=== PATIENT | male | born 1980 | race Two or more races ===

== ENCOUNTER 2024-07-12 11:31 | Inpatient (IN) | payer OTHER ==
[~2024-07-12] VITALS: Ht 177.8 cm; Wt 90.7 kg
[2024-07-12 12:28] LABS: HEMATOCRIT 42.3 % (39.0-48.0); HEMOGLOBIN 13.9 g/dL (13-16.00); MEAN CELL VOLUME 85.7 fL (80.0-100.00); MEAN CORPUSCULAR HEMOGLOBIN 28.1 pg (27.00-32.0); MEAN CORPUSCULAR HGB CONC 32.8 g/dl (32.0-36.0); PLATELET COUNT 294 K/uL (150-450); RED BLOOD COUNT 4.93 M/uL (4.00-6.00); RED CELL DISTRIBUTION WIDTH 15.4 % (11.5-14.5)
[2024-07-12 12:32] LABS: PH,URINE 6.5 (5.0-8.0); URINE APPEARANCE Clear; URINE BILIRRUBIN Negative (NEGATIVE); URINE BLOOD Negative; URINE COLOR Yellow; URINE GLUCOSE Negative (NEGATIVE); URINE KETONE Negative (NEGATIVE); URINE LEUKOCYTE Negative; URINE NITRATE Negative; URINE PROTEIN Negative (NEGATIVE); URINE UROBILINOGEN 0.2 E.U./dl
[2024-07-12 12:36] LABS: URINE RBC 7.9 uL (0.0-20.8)
[2024-07-12 12:39] LABS: URINE BACTERIA 2.5 uL (0.0-1933); URINE EPITHELIAL CELLS 0.4 uL (0.0-38.8); URINE WBC 1.5 uL (0.0-23.2)
[2024-07-12] MEDS ORDERED: COZAAR100 MG PO (12:52)
[2024-07-12 12:53] LABS: INR < 0.93; PARTIAL THROMBOPLASTIN TIME 31.6 SECONDS (22.0-34.0); PROTHROMBIN TIME 10.2 SECONDS (9.0-11.5)
[2024-07-12] MEDS ORDERED: HYDROCHLOROTHIA25 MG PO (12:53)
[2024-07-12 12:54] VITALS: BP 130/77
[2024-07-12 12:59] LABS: BILIRUBIN TOTAL 0.29 mg/dL (0.3-1.2); CREATININE SERUM 0.97 mg/dL (0.70-1.30); GFR 84.08; GLOBULINA 3.9 G/DL (2.4-3.5); POTASSIUM 3.35 mEq/L (3.5-5.1); TOTAL PROTEIN 7.9 gm/dL (6.4-8.2)
[2024-07-20] MEDS ORDERED: CEFTRIAXONE SODIUM 2,000 MG VIAL IV SCH (09:00)
[2024-07-20] MEDS ORDERED: METRONIDAZOLE/SODIUM CHLORIDE 500 MG/100 ML PIGGYBACK IV SCH (09:00)
[2024-07-20] MEDS ORDERED: BUPIVACAINE HCL 30 ML VIAL IJ ONE (09:00)
[2024-07-20] MEDS ORDERED: LIDOCAINE HCL 1%/EPINEPHRINE 20ML VIAL IJ ONE (09:00)
[2024-07-20] MEDS ORDERED: ONDANSETRON HCL 2 MG/ML VIAL IV PRN (11:30)
[2024-07-20] MEDS ORDERED: MORPHINE SULFATE 4 MG/ML CARTRIDGE IV PRN (11:30)
[2024-07-20] MEDS ORDERED: RINGERS SOLUTION,LACTATED 1,000 ML IV SCH (11:30)
[2024-07-20] MEDS ORDERED: DEXTROSE 50 % IN WATER 0.5 G/ML DISP.SYRIN IV PRN (11:30)
[2024-07-20] MEDS ORDERED: OxyCODONE HCL 5 MG TABLET (ROXICODONE) PO PRN (11:30)
[2024-07-20 13:00] LABS: HEMATOCRIT 39.1 % (39.0-48.0); HEMOGLOBIN 13.3 g/dL (13-16.00); MEAN CELL VOLUME 84.4 fL (80.0-100.00); MEAN CORPUSCULAR HEMOGLOBIN 28.6 pg (27.00-32.0); MEAN CORPUSCULAR HGB CONC 33.9 g/dl (32.0-36.0); PLATELET COUNT 331 K/uL (150-450); RED BLOOD COUNT 4.64 M/uL (4.00-6.00); RED CELL DISTRIBUTION WIDTH 15.5 % (11.5-14.5)
[2024-07-20] MEDS ORDERED: HYOSCYAMINE SULFATE 0.125 MG TAB.SUBL SL SCH (13:00)
[2024-07-20] MEDS ORDERED: ACETAMINOPHEN 500 MG GEL..CAP PO SCH (14:00)
[2024-07-20 14:28] VITALS: BP 118/79; O2SAT 95
[2024-07-20] MEDS ORDERED: ENALAPRILAT DIHYDRATE 1.25 MG/ML VIAL IV PRN (14:45)
[2024-07-20] MEDS ORDERED: GABAPENTIN 300 MG CAPSULE PO SCH (17:00)
[2024-07-20] MEDS ORDERED: SIMETHICONE 125 MG CAPSULE PO SCH (17:00)
[2024-07-20] MEDS ORDERED: POLYETHYLENE GLYCOL 3350 17 GM BLIST.PACK PO SCH (17:00)
[2024-07-20] MEDS ORDERED: CELECOXIB 200 MG CAPSULE PO SCH (17:00)
[2024-07-20] MEDS ORDERED: METOCLOPRAMIDE HCL 5 MG/ML VIAL IV SCH (17:00)
[2024-07-20 18:24] VITALS: BP 119/79; O2SAT 96
[2024-07-20] MEDS ORDERED: FAMOTIDINE/PF 20 MG/2 ML VIAL IV PUSH SCH (21:00)
[2024-07-21] VITALS: BP 123/57; O2SAT 98
[2024-07-21 07:55] LABS: HEMATOCRIT 40.3 % (39.0-48.0); HEMOGLOBIN 13.2 g/dL (13-16.00); MEAN CELL VOLUME 86.5 fL (80.0-100.00); MEAN CORPUSCULAR HEMOGLOBIN 28.4 pg (27.00-32.0); MEAN CORPUSCULAR HGB CONC 32.8 g/dl (32.0-36.0); PLATELET COUNT 252 K/uL (150-450); RED BLOOD COUNT 4.66 M/uL (4.00-6.00); RED CELL DISTRIBUTION WIDTH 15.3 % (11.5-14.5)
[2024-07-21 08:41] LABS: ALBUMIN 3.3 gm/dL (3.4-5.0); CALCIUM 8.9 mg/dL (8.5-10.1); CREATININE SERUM 1.19 mg/dL (0.70-1.30); GFR 66.41; MAGNESIUM 1.7 mg/dL (1.8-2.4); PHOSPHOROUS 3.3 mg/dL (2.5-4.9); POTASSIUM 3.33 mEq/L (3.5-5.1)
[2024-07-21] MEDS ORDERED: LACTOBACILLUS ACIDOPHILUS 1 CAP CAP PO SCH (09:00)
[2024-07-21] MEDS ORDERED: LOSARTAN/HYDROCHLOROTHIAZIDE 1 UDTAB TABLET PO SCH (09:00)
[2024-07-21] MEDS ORDERED: LACTULOSE 20 G/30 ML BLIST.PACK PO SCH (09:00)
[2024-07-21 09:58] VITALS: BP 124/82; O2SAT 97
[2024-07-21 16:00] VITALS: BP 99/66; O2SAT 95
[2024-07-21] MEDS ORDERED: ENOXAPARIN SODIUM 40 MG/0.4 ML SYRINGE SUBCUTANEO SCH (17:00)
[2024-07-22 00:18] VITALS: BP 125/74; O2SAT 95
[2024-07-22 08:00] VITALS: BP 123/77; O2SAT 98
[2024-07-22] MEDS ORDERED: ENOXAPARIN SODIUM 40 MG/0.4 ML SYRINGE SUBCUTANEO SCH (09:00)
[2024-07-22] MEDS ORDERED: INTESTINEX680 M1 PO (11:16)
[2024-07-22] MEDS ORDERED: LEVSIN/SL0.125 MG SL (11:16)
[2024-07-22] MEDS ORDERED: NEURONTIN300 MG PO (11:16)
== END 2024-07-22 12:26 | disposition home or self-care (01) | DRG 330 ==
LOC: SURH 07-20 05:22 → O/R 07-20 05:22 → SURG 07-20 12:15 → SURH 07-20 12:40 → SURG 07-20 17:30 → SURH 07-22 12:26
PROVIDERS: ADMIT Colon & Rectal Surgery; ATTEND Colon & Rectal Surgery
PROC: 0DBP4ZZ Excision of Rectum, Percutaneous Endoscopic Approach (ICD-10-PCS; 2024-07-20)
PROC: 0DJD8ZZ Inspection of Lower Intestinal Tract, Via Natural or Artificial Opening Endoscopic (ICD-10-PCS; 2024-07-20)
PROC: 0DTN4ZZ Resection of Sigmoid Colon, Percutaneous Endoscopic Approach (ICD-10-PCS; principal; 2024-07-20 17:30)
DX: K57.32 Diverticulitis of large intestine without perforation or abscess without bleeding (principal); K92.1 Melena

== ENCOUNTER 2024-07-30 12:57 | Inpatient (IN) | payer OTHER ==
[~2024-07-30] VITALS: Ht 177.8 cm; Wt 90.7 kg
[~2024-07-30 12:57] MED LIST: COZAAR100 MG PO; HYDROCHLOROTHIA25 MG PO; INTESTINEX680 M1 PO; LEVSIN/SL0.125 MG SL; NEURONTIN300 MG PO
[2024-07-30 14:20] LABS: HEMATOCRIT 33.4 % (39.0-48.0); HEMOGLOBIN 11.6 g/dL (13-16.00); MEAN CELL VOLUME 82.5 fL (80.0-100.00); MEAN CORPUSCULAR HEMOGLOBIN 28.5 pg (27.00-32.0); MEAN CORPUSCULAR HGB CONC 34.6 g/dl (32.0-36.0); RED BLOOD COUNT 4.05 M/uL (4.00-6.00); RED CELL DISTRIBUTION WIDTH 15.7 % (11.5-14.5)
[2024-07-30 14:21] LABS: PLATELET COUNT 541 K/uL (150-450)
[2024-07-30 14:58] LABS: INR 1.15; PROTHROMBIN TIME 12.4 SECONDS (9.0-11.5)
[2024-07-30] MEDS ORDERED: CEFTRIAXONE SODIUM 1,000 MG VIAL IV ONE (15:45)
[2024-07-30] MEDS ORDERED: PIPERACILLIN/TAZOBACTAM SODIUM 3.375 GM VIAL IV ONE ×2 (16:03→16:09)
[2024-07-30] MEDS ORDERED: 0.9 % SODIUM CHLORIDE 1,000 ML IV SCH ×2 (16:15→19:00)
[2024-07-30 17:06] LABS: ALBUMIN 2.6 gm/dL (3.4-5.0); BILIRUBIN TOTAL 1.06 mg/dL (0.3-1.2); CALCIUM 8.8 mg/dL (8.5-10.1); CREATININE SERUM 1.24 mg/dL (0.70-1.30); GFR 63.33; GLOBULINA 5.9 G/DL (2.4-3.5); POTASSIUM 3.24 mEq/L (3.5-5.1); TOTAL PROTEIN 8.5 gm/dL (6.4-8.2)
[2024-07-30 17:07] LABS: URINE APPEARANCE Cloudy; URINE BILIRRUBIN Negative (NEGATIVE); URINE BLOOD Trace; URINE COLOR Dark Yellow; URINE GLUCOSE Negative (NEGATIVE); URINE KETONE 15 (NEGATIVE); URINE LEUKOCYTE Negative; URINE NITRATE Negative
[2024-07-30 17:11] LABS: URINE BACTERIA 39.1 uL (0.0-1933); URINE EPITHELIAL CELLS 53.8 uL (0.0-38.8); URINE RBC 30.6 uL (0.0-20.8)
[2024-07-30 17:19] LABS: URINE CAST 0.14 uL (0.0-1.40); URINE PROTEIN 100 (NEGATIVE)
[2024-07-30] MEDS ORDERED: PIPERACILLIN/TAZOBACTAM SODIUM 3.375 GM in 0.9 % SODIUM CHLORIDE 100 ML IV SCH (18:00)
[2024-07-30] MEDS ORDERED: IPRATROPIUM BROMIDE 0.5 MG/2.5 ML AMPUL.NEB IH SCH (18:52)
[2024-07-30] MEDS ORDERED: VANCOMYCIN HCL 1,000 MG VIAL IV SCH (18:55)
[2024-07-30] MEDS ORDERED: MEROPENEM 1,000 MG in 0.9 % SODIUM CHLORIDE 100 ML IV SCH (18:55)
[2024-07-30] MEDS ORDERED: FUROsemide 20 MG/2 ML VIAL IV SCH (18:55)
[2024-07-30] MEDS ORDERED: ACETAMINOPHEN 500 MG GEL..CAP PO PRN (19:00)
[2024-07-30] MEDS ORDERED: ENALAPRILAT DIHYDRATE 1.25 MG/ML VIAL IV PRN (19:00)
[2024-07-30] MEDS ORDERED: POTASSIUM CHLORIDE 20MEQ/100ML H2O PB IV ONE (19:30)
[2024-07-30] MEDS ORDERED: VANCOMYCIN HCL 1,000 MG VIAL ONE (19:38)
[2024-07-30] MEDS ORDERED: FUROsemide 20 MG/2 ML VIAL ONE (19:38)
[2024-07-30 20:41] VITALS: BP 139/75; O2SAT 97
[2024-07-30 20:43] LABS: INR 1.16; PARTIAL THROMBOPLASTIN TIME 31.3 SECONDS (22.0-34.0); PROTHROMBIN TIME 12.5 SECONDS (9.0-11.5)
[2024-07-30] MEDS ORDERED: MORPHINE SULFATE 4 MG/ML VIAL IV PRN (20:45)
[2024-07-30 21:41] VITALS: BP 139/75; O2SAT 99
[2024-07-30 23:54] LABS: ABG PH 7.481 (7.35-7.45); ABG PO2 73.2 mmHg (80-100); ABG pCO2 37.9 mmHg (35-45); BASE EXCESS 4.1 mmol/l; BICARBONATE 27.7 mmol/l (23-25); SaO2 95.9 %; Tco2 28.8 mmol/l
[2024-07-30 23:55] LABS: allen test SATISFACTORY; o2 50 %; puncture site RADIAL RIGHT
[2024-07-31] VITALS: BP 128/75; O2SAT 98
[2024-07-31 00:13] LABS: ABG PH 7.513 (7.35-7.45); ABG pCO2 30.3 mmHg (35-45)
[2024-07-31 00:14] LABS: ABG PO2 57.3 mmHg (80-100); BASE EXCESS 1.8 mmol/l; BICARBONATE 23.8 mmol/l (23-25); Tco2 24.7 mmol/l; allen test SATISFACTORY; o2 21 %; puncture site RADIAL RIGHT
[2024-07-31 00:16] LABS: SaO2 92.5 %
[2024-07-31 04:00] VITALS: BP 119/79; O2SAT 97
[2024-07-31 07:33] VITALS: BP 130/73; O2SAT 96
[2024-07-31] MEDS ORDERED: VANCOMYCIN HCL 1,000 MG VIAL ONE (08:04)
[2024-07-31] MEDS ORDERED: FAMOTIDINE/PF 20 MG in 0.9 % SODIUM CHLORIDE 8 ML IV PUSH SCH (09:00)
[2024-07-31] MEDS ORDERED: ENOXAPARIN SODIUM 40 MG/0.4 ML SYRINGE SUBCUTANEO SCH (09:00)
[2024-07-31] MEDS ORDERED: MORPHINE SULFATE 4 MG/ML CARTRIDGE IV PRN (10:30)
[2024-07-31 12:00] VITALS: BP 139/85; O2SAT 95
[2024-07-31 15:17] VITALS: BP 134/83; O2SAT 98
[2024-07-31 20:02] VITALS: BP 138/82; O2SAT 95
[2024-08-01] VITALS: BP 109/67; O2SAT 94
[2024-08-01 04:00] VITALS: BP 122/72; O2SAT 93
[2024-08-01 07:20] VITALS: BP 131/80; O2SAT 94
[2024-08-01] MEDS ORDERED: VANCOMYCIN HCL 1,000 MG VIAL ONE (08:00)
[2024-08-01] MEDS ORDERED: CHLORHEXIDINE GLUCONATE 120 ML BOTTLE TOP ONE (10:43)
[2024-08-01 12:00] VITALS: BP 145/81; O2SAT 96
[2024-08-01 15:30] VITALS: BP 149/78; O2SAT 96
[2024-08-01 20:00] VITALS: BP 139/82; O2SAT 95
[2024-08-02 00:17] VITALS: BP 141/75; O2SAT 96
[2024-08-02 04:00] VITALS: BP 128/75; O2SAT 92
[2024-08-02 06:55] LABS: HEMOGLOBIN 10.3 g/dL (13-16.00); MEAN CELL VOLUME 82.8 fL (80.0-100.00); MEAN CORPUSCULAR HEMOGLOBIN 28.3 pg (27.00-32.0); MEAN CORPUSCULAR HGB CONC 34.2 g/dl (32.0-36.0); PLATELET COUNT 609 K/uL (150-450); RED BLOOD COUNT 3.63 M/uL (4.00-6.00); RED CELL DISTRIBUTION WIDTH 15.3 % (11.5-14.5)
[2024-08-02 07:25] VITALS: BP 137/78; O2SAT 91
[2024-08-02 07:55] LABS: ALBUMIN 2.1 gm/dL (3.4-5.0); BILIRUBIN TOTAL 1.35 mg/dL (0.3-1.2); CALCIUM 7.9 mg/dL (8.5-10.1); CREATININE SERUM 1.04 mg/dL (0.70-1.30); GFR 77.58; GLOBULINA 4.3 G/DL (2.4-3.5); POTASSIUM 3.47 mEq/L (3.5-5.1); TOTAL PROTEIN 6.4 gm/dL (6.4-8.2)
[2024-08-02] MEDS ORDERED: VANCOMYCIN HCL 1,000 MG VIAL ONE (08:47)
[2024-08-02 12:00] VITALS: BP 130/81; O2SAT 91
[2024-08-02 15:00] VITALS: BP 123/76; O2SAT 94
[2024-08-02] MEDS ORDERED: SODIUM CL 0.9% 100 ML IV.SOLN IV ONE (15:57)
[2024-08-02] MEDS ORDERED: ACETAMINOPHEN 500 MG GEL..CAP PO PRN (17:00)
[2024-08-02] MEDS ORDERED: MEROPENEM 500 MG/VIAL VIAL IV SCH (18:00)
[2024-08-02 20:34] LABS: TP PLEURAL FLUID 5.1 g/dl
[2024-08-02] MEDS ORDERED: VANCOMYCIN HCL 5 MG/ML REDILUIDO IV SCH (21:00)
[2024-08-02 21:11] LABS: MONONUCLEAR 64 %; PLEURAL FLUID APPEARANCE CLOUDY; PLEURAL FLUID COLOR YELLOW; POLYMORPHONUCLEAR 36 %
[2024-08-02] MEDS ORDERED: fentaNYL CITRATE 50 MCG/ML AMPUL IV PUSH ONE (21:45)
[2024-08-02] MEDS ORDERED: MIDAZOLAM HCL 2 MG/2 ML VIAL IV PUSH ONE (21:45)
[2024-08-02] MEDS ORDERED: MORPHINE SULFATE 4 MG/ML VIAL IV PRN (22:15)
[2024-08-02 23:00] VITALS: BP 117/76; O2SAT 96
[2024-08-03 04:00] VITALS: BP 115/72; O2SAT 95
[2024-08-03 06:31] LABS: HEMATOCRIT 29.8 % (39.0-48.0); HEMOGLOBIN 9.8 g/dL (13-16.00); MEAN CELL VOLUME 84.3 fL (80.0-100.00); MEAN CORPUSCULAR HEMOGLOBIN 27.7 pg (27.00-32.0); MEAN CORPUSCULAR HGB CONC 32.9 g/dl (32.0-36.0); PLATELET COUNT 613 K/uL (150-450); RED BLOOD COUNT 3.54 M/uL (4.00-6.00); RED CELL DISTRIBUTION WIDTH 15.7 % (11.5-14.5)
[2024-08-03 06:52] LABS: ALBUMIN 1.8 gm/dL (3.4-5.0); BILIRUBIN TOTAL 1.03 mg/dL (0.3-1.2); CREATININE SERUM 0.81 mg/dL (0.70-1.30); GFR 103.52; GLOBULINA 4.1 G/DL (2.4-3.5); MAGNESIUM 2.3 mg/dL (1.8-2.4); PHOSPHOROUS 2.4 mg/dL (2.5-4.9); POTASSIUM 3.77 mEq/L (3.5-5.1); TOTAL PROTEIN 5.9 gm/dL (6.4-8.2)
[2024-08-03 07:04] LABS: C-REACTIVE PROTEIN 31.3 MG/DL (0.00-0.29)
[2024-08-03 07:39] VITALS: BP 114/75; O2SAT 96
[2024-08-03 12:00] VITALS: BP 132/82; O2SAT 97
[2024-08-03 15:15] VITALS: BP 124/78; O2SAT 94
[2024-08-03 20:23] VITALS: BP 109/73; O2SAT 92
[2024-08-03 23:13] VITALS: BP 115/75; O2SAT 94
[2024-08-04] VITALS (8 sets, daily range): BP systolic 112–128; BP diastolic 68–85; O2SAT 94–98
[2024-08-04 07:55] LABS: HEMATOCRIT 29.3 % (39.0-48.0); HEMOGLOBIN 9.8 g/dL (13-16.00); MEAN CELL VOLUME 83.5 fL (80.0-100.00); MEAN CORPUSCULAR HEMOGLOBIN 28.1 pg (27.00-32.0); MEAN CORPUSCULAR HGB CONC 33.6 g/dl (32.0-36.0); PLATELET COUNT 637 K/uL (150-450); RED BLOOD COUNT 3.51 M/uL (4.00-6.00); RED CELL DISTRIBUTION WIDTH 15.5 % (11.5-14.5)
[2024-08-04 08:18] LABS: CALCIUM 7.9 mg/dL (8.5-10.1); CREATININE SERUM 0.78 mg/dL (0.70-1.30); GFR 108.13; POTASSIUM 3.7 mEq/L (3.5-5.1)
[2024-08-04] MEDS ORDERED: LACTOBACILLUS ACIDOPHILUS 1 CAP CAP PO SCH (09:00)
[2024-08-04] MEDS ORDERED: VANCOMYCIN HCL 125 MG/7.5 ML BLIST.PACK PO SCH (18:00)
[2024-08-05 00:23] VITALS: O2SAT 97
[2024-08-05 01:35] VITALS: BP 103/73; O2SAT 96
[2024-08-05 04:00] VITALS: O2SAT 97
[2024-08-05 09:19] VITALS: O2SAT 97
[2024-08-05 09:33] VITALS: BP 116/73; O2SAT 98
[2024-08-05] MEDS ORDERED: AMPICILLIN SODIUM/SULBACTAM NA 3,000 MG VIAL IV SCH (14:00)
[2024-08-05 16:10] VITALS: BP 133/77; O2SAT 96
[2024-08-05] MEDS ORDERED: METRONIDAZOLE/SODIUM CHLORIDE 100 ML IV SCH (17:00)
[2024-08-06] VITALS: BP 114/77; O2SAT 95
[2024-08-06 06:33] LABS: HEMATOCRIT 30.5 % (39.0-48.0); HEMOGLOBIN 10.1 g/dL (13-16.00); MEAN CELL VOLUME 84.1 fL (80.0-100.00); MEAN CORPUSCULAR HEMOGLOBIN 27.9 pg (27.00-32.0); MEAN CORPUSCULAR HGB CONC 33.1 g/dl (32.0-36.0); PLATELET COUNT 668 K/uL (150-450); RED BLOOD COUNT 3.63 M/uL (4.00-6.00); RED CELL DISTRIBUTION WIDTH 15.3 % (11.5-14.5)
[2024-08-06 07:14] LABS: CALCIUM 8.5 mg/dL (8.5-10.1); CREATININE SERUM 0.84 mg/dL (0.70-1.30); GFR 98.81; POTASSIUM 4.09 mEq/L (3.5-5.1)
[2024-08-06 08:00] VITALS: BP 140/87; O2SAT 94
[2024-08-06 16:12] VITALS: BP 121/83; O2SAT 94
[2024-08-06 21:00] VITALS: O2SAT 92
[2024-08-07] VITALS (9 sets, daily range): BP systolic 111–126; BP diastolic 76–83; O2SAT 91–98
[2024-08-07] MEDS ORDERED: FAMOtidine 20 MG TABLET PO SCH (09:00)
[2024-08-08] VITALS (9 sets, daily range): BP systolic 95–132; BP diastolic 60–81; O2SAT 83–97
[2024-08-08 08:17] LABS: AMYLASE 67 U/L (25-115); LIPASE 68 U/L (13-75)
[2024-08-09 00:02] VITALS: O2SAT 90
[2024-08-09 06:12] LABS: HEMATOCRIT 30.6 % (39.0-48.0); HEMOGLOBIN 10.2 g/dL (13-16.00); MEAN CELL VOLUME 84.5 fL (80.0-100.00); MEAN CORPUSCULAR HEMOGLOBIN 28.1 pg (27.00-32.0); MEAN CORPUSCULAR HGB CONC 33.3 g/dl (32.0-36.0); PLATELET COUNT 567 K/uL (150-450); RED BLOOD COUNT 3.63 M/uL (4.00-6.00); RED CELL DISTRIBUTION WIDTH 15.5 % (11.5-14.5)
[2024-08-09 06:40] LABS: ALBUMIN 2.2 gm/dL (3.4-5.0); CALCIUM 8.5 mg/dL (8.5-10.1); CREATININE SERUM 0.89 mg/dL (0.70-1.30); GFR 92.44; MAGNESIUM 2.2 mg/dL (1.8-2.4); PHOSPHOROUS 2.7 mg/dL (2.5-4.9); POTASSIUM 3.88 mEq/L (3.5-5.1)
[2024-08-10 08:00] VITALS: BP 135/83; O2SAT 96
[2024-08-10 10:26] VITALS: O2SAT 94
[2024-08-10 13:56] VITALS: O2SAT 90
[2024-08-10 15:19] VITALS: O2SAT 95
[2024-08-10 16:00] VITALS: BP 132/83; O2SAT 96
[2024-08-10 22:10] VITALS: O2SAT 94
[2024-08-11] VITALS (9 sets, daily range): BP systolic 106–141; BP diastolic 70–89; O2SAT 90–97
[2024-08-12] VITALS (10 sets, daily range): BP systolic 116–133; BP diastolic 75–81; O2SAT 92–100
[2024-08-13 02:47] VITALS: O2SAT 97
[2024-08-13 09:05] VITALS: BP 130/90; O2SAT 98
[2024-08-13 09:52] VITALS: O2SAT 97
[2024-08-13] MEDS ORDERED: INTESTINEX680 M1 PO (12:20)
[2024-08-13 12:23] VITALS: O2SAT 98
== END 2024-08-13 13:23 | disposition home or self-care (01) | DRG 871 ==
LOC: ER 12:59 → ICU 19:34 → ICU-2 19:34 → SURH 19:34 → ICU-2 19:42 → ICU 20:17 → SURH 08-04 15:50 → ICU 08-04 15:56 → SURH 08-04 20:25
PROVIDERS: Emergency Medicine; General Practice; Internal Medicine; Internal Medicine Infectious Disease; Radiology Vascular & Interventional Radiology; Surgery; ADMIT Colon & Rectal Surgery; ATTEND Colon & Rectal Surgery
PROC: BB24ZZZ Computerized Tomography (CT Scan) of Bilateral Lungs (ICD-10-PCS; principal; 2024-07-30)
PROC: BW21YZZ Computerized Tomography (CT Scan) of Abdomen and Pelvis using Other Contrast (ICD-10-PCS; 2024-07-30)
PROC: 5A0935A Assistance with Respiratory Ventilation, Less than 24 Consecutive Hours, High Flow/Velocity Cannula (ICD-10-PCS; 2024-07-30)
PROC: 8E0ZXY6 Isolation (ICD-10-PCS; 2024-07-30)
PROC: 3E0F7GC Introduction of Other Therapeutic Substance into Respiratory Tract, Via Natural or Artificial Opening (ICD-10-PCS; 2024-07-31)
PROC: 0W9F30Z Drainage of Abdominal Wall with Drainage Device, Percutaneous Approach (ICD-10-PCS; 2024-08-02)
PROC: 0W993ZZ Drainage of Right Pleural Cavity, Percutaneous Approach (ICD-10-PCS; 2024-08-02)
PROC: 02HV33Z Insertion of Infusion Device into Superior Vena Cava, Percutaneous Approach (ICD-10-PCS; 2024-08-02)
PROC: 4A12X4Z Monitoring of Cardiac Electrical Activity, External Approach (ICD-10-PCS; 2024-08-04)
PROC: BH4BZZZ Ultrasonography of Chest Wall (ICD-10-PCS; 2024-08-06)
PROC: BW21ZZZ Computerized Tomography (CT Scan) of Abdomen and Pelvis (ICD-10-PCS; 2024-08-09)
DX: A41.9 Sepsis, unspecified organism (principal); J18.0 Bronchopneumonia, unspecified organism; K65.1 Peritoneal abscess; T81.43XA Infection following a procedure, organ and space surgical site, initial encounter; N17.8 Other acute kidney failure; J90 Pleural effusion, not elsewhere classified; L02.211 Cutaneous abscess of abdominal wall; B95.2 Enterococcus as the cause of diseases classified elsewhere; B96.6 Bacteroides fragilis [B. fragilis] as the cause of diseases classified elsewhere; K57.30 Diverticulosis of large intestine without perforation or abscess without bleeding